=== PATIENT | female | born 1975 | race African-American/Black ===

== ENCOUNTER 2023-02-13 11:16 | Emergency (ER) | payer BC, SELFPAY ==
[2023-02-13] MEDS ORDERED: Dexamethasone 20 MG/5 ML VIAL ONE (11:32)
[2023-02-13] MEDS ORDERED: Acetaminophen 500 MG TAB ONE (11:32)
== END 2023-02-13 12:13 | disposition home or self-care (01) ==
LOC: NAV ERS 11:16
DX: J02.9 Acute pharyngitis, unspecified (principal)
CPT/HCPCS: 87430; 96372; 99283; J1100